=== PATIENT | male | born 1950 | race Caucasian/White ===

== ENCOUNTER → 2021-05-25 | Outpatient (CLI) | payer MEDICARE ==
[~2021-05-25] MED LIST: ATOR10TA60 PO; IOHEXOL 300 MG/ML 100ML VIAL. IV ONE; METO-239 PO
--- NOTE | 2021-05-26 07:32 | KCIC ---
CT THORAX W dated 05/25/2021 2:35 PM Indication:Reason: New onset SOA, better now that he's on meds. Past smoker. / Spl. Instructions: 95 cc Omni 300. / History: Comparison: No comparison is available. Technique: CT images were performed using infusion of 95 mL Omnipaque 300. One or more of the following individualized dose reduction techniques were utilized for this examinat ion: 1. Automated exposure control 2. Adjustment of the mA and/or kV according to patient size 3. Use of iterative reconstruction technique Findings: There is a small left-sided pleural effusion. This is mostly seen posteriorly and inferiorly, althoug h a small amount of fluid apparently has entered the major fissure and is loculated superiorly. There is a calcified granuloma in the right lower lobe. Some emphysema is seen, especially in the upper lo bes. No other significant pulmonary parenchymal abnormality is apparent. The central airways show no obstruction. No enlarged lymph nodes are seen. Images through the upper abdomen show evidence of aortic dilatation at the lower margin of the scan. Transverse diameter of the aorta measures up to about 4.3 cm at this level. IMPRESSION: There is a small left pleural effusion with some loculated component in the major fissure. No infiltr ate is seen in the lungs. There is evidence of emphysema. There apparently is an aneurysm of the abdominal aorta, incompletely demonstrated on this exam, but m easuring at least [address] imaging of the abdomen and pelvis could further define this , if this has not been investigated previously. Electronically signed by: Phillip Haq Jr., MD (05/26/2021 7:29 AM) [id number]
== END ==
LOC: KCIC CT 14:04
PROVIDERS: ATTEND Family Medicine
DX: J90 Pleural effusion, not elsewhere classified (principal); J43.9 Emphysema, unspecified; J84.10 Pulmonary fibrosis, unspecified; I71.4 Abdominal aortic aneurysm, without rupture
CPT/HCPCS: 71260; Q9967